=== PATIENT | female | born 2000 | race African-American/Black ===

== ENCOUNTER 2023-10-26 07:22 | Emergency (ER) | payer MEDICAID, OTHER ==
[~2023-10-26] VITALS: Ht 167.6 cm; Wt 110.4 kg
[2023-10-26 07:54] VITALS: BP 116/73; PULSE 87; RESP 16; TEMP 99; O2SAT 100
[2023-10-26] MEDS ORDERED: IBUP1TAB5 PO (08:35)
[2023-10-26] MEDS ORDERED: HYDR-4902 PO (08:35)
[2023-10-26] MEDS ORDERED: CLIN-203 PO (08:35)
== END 2023-10-26 08:50 | disposition home or self-care (01) ==
LOC: ER 07:22
DX: K08.89 Other specified disorders of teeth and supporting structures (principal); J45.909 Unspecified asthma, uncomplicated; F17.210 Nicotine dependence, cigarettes, uncomplicated; F15.90 Other stimulant use, unspecified, uncomplicated; Z87.442 Personal history of urinary calculi; Z79.899 Other long term (current) drug therapy

== ENCOUNTER 2024-05-16 01:30 | Emergency (ER) | payer MEDICAID ==
[~2024-05-16] VITALS: Ht 167.6 cm; Wt 113.0 kg
[~2024-05-16 01:30] MED LIST: CLIN-203 PO; HYDR-4902 PO; IBUP1TAB5 PO
[2024-05-16 02:33] VITALS: BP 106/71; PULSE 85; RESP 20; TEMP 98.3; O2SAT 98
[2024-05-16 02:33] LABS: Urine Bacteria FEW /hpf (None Seen); Urine Blood 1+ /uL (Negative); Urine Clarity Turbid (Clear); Urine Color Light-Orange (Yellow); Urine Mucus FEW (None Seen); Urine Protein, UAD 1+ (Negative); Urine Specific Gravity 1.029 (1.001-1.035); Urine Urobilinogen Normal (Negative); Urine WBC 14 /hpf (0 - 5)
[2024-05-16 02:59] LABS: COVID19 ANTIGEN SOFIA FIA NEGATIVE (NEGATIVE)
[2024-05-16 03:01] LABS: Rapid Influenza A Negative (Negative); Rapid Influenza B Negative (Negative)
[2024-05-16] MEDS ORDERED: CEPH500C PO (03:17)
--- NOTE | 2024-05-16 03:18 | ED.PDOC ---
GI ASSESSMENT HPI Comments THIS IS A 23-YEAR-OLD FEMALE PRESENTS TO ED FLU-LIKE SYMPTOMS X2 DAYS. PATIENT ALSO PRESENTS WITH HER DAUGHTER WHO WAS ALSO SICK AT HOME WITH THE SAME SYMPTOMS. PATIENT DENIES VAGINAL BLEEDING, SPOTTING, ABDOMINAL PAIN OR CRAMPING. SHE NOTES COUGH, RUNNY NOSE, AND SUBJECTIVE FEVERS. Chief Complaint: Flu like Time Seen by MD: 01:48 Primary Care Provider: NONE Reviewed Notes: Nurses Notes, Medications, Allergies Allergies: Coded Allergies: NO KNOWN ALLERGIES (Unverified , 10/26/23) Home Meds Active Scripts Cephalexin Monohydrate (Cephalexin) 500 Mg Cap, 1 CAP PO BID for 5 Days, #10 CAP Prov:PAULA ROBLES CUTTER APPRENTICE HAND 05/16/24 Hydrocodone-Acetaminophen (Hydrocodone Bitartrate/AC 5-325 mg) 1 Tab Tab, 1 TAB PO BIDP PRN for 4 Days, #8 TAB 0 Refills Prov:GUIDO BE FIXED INTEREST DEALER 10/26/23 Ibuprofen Micronized (Ibuprofen) 600 Mg Tab, 600 MG PO TIDWM for 10 Days, #30 TAB 0 Refills Prov:GUIDO BE FIXED INTEREST DEALER 10/26/23 Clindamycin HCl (Clindamycin Hydrochloride) 300 Mg Cap, 300 MG PO TID for 5 Days, #15 CAP 0 Refills Prov:GUIDO BE FIXED INTEREST DEALER 10/26/23 Mode of Arrival: Ambulatory Past Medical History PAST MEDICAL HISTORY: Denies Surgical History: Denies all surgeries [employer] SUPERVISOR History: No Pertinent [employer]PERVISOR History Family History Family History: Reviewed,noncontributory to illness Social History Smoker: Non-Smoker Alcohol: Denies ETOH Use Drugs: Denies Drug Use Constitutional: reports: fever; denies: chills, diaphoresis, fatigue, malaise, sweats, weakness, others EENTM: reports: nasal discharge; denies: blurred vision, double vision, ear bleeding, ear discharge, ear drainage, ear pain, ear ringing, eye pain, eye redness, hearing loss, mouth pain, mouth swelling, nose bleeding, nose congestion, nose pain, photophobia, tearing, throat pain, throat swelling, voice changes, others Respiratory: reports: cough; denies: hemoptysis, orthopnea, SOB at rest, shortness of breath, SOB with excertion, stridor, wheezing, others Cardiovascular: denies: chest pain, dizzy spells, diaphoresis, Dyspnea on exertion, edema, irregular heart beat, left arm pain, lightheadedness, palpi tations, PND, syncope, others Gastrointestinal: denies: abdomen distended, abdominal pain, blood streaked bowels, constipated, diarrhea, dysphagia, difficulty swallowing, hematemesis, melena, nausea, poor appetite, poor fluid intake, rectal bleeding, rectal pain, vomiting, others Genitourinary: denies: abnormal vagina bleeding, burning, dyspareunia, dysuria, flank pain, frequency, hematuria, incontinence, pain, , vagina discharge, urgency, others Neurological: denies: dizziness, fainting, headache, left sided numbness, left sided weakness, numbness, paresthesia, pre-existing deficit, right sided numbness, right sided weakness, seizure, speech problems, tingling, tremors, weakness, others Musculoskeletal: denies: back pain, gout, joint pain, joint swelling, muscle pain, muscle stiffness, neck pain, others Integumetry: denies: bruises, change in color, change in hair/nails, dryness, laceration, lesions, lumps, rash, wounds, others Allergic/Immunocompromised: denies: Difficulty Healing, Frequent Infections, Hives, Itching, others Hematologic/Lymphatic: denies: anemia, blood clots, easy bleeding, easy bru ising, swollen glands, others Endocrine: denies: excessive hunger, excessive sweating, excessive thirst, e xcessive urination, flushing, intolerance to cold, intolerance to heat, unexplained weight gain, unexplained weight loss, others Psychiatric: denies: anxiety, bipolar disorder, depression, hopeless, panic disorder, schizophrenia, sleepless, suicidal, others Physical Exam General Appearance: No Apparent Distress, Normal HEENT: Normal ENT Inspection, Pharynx Normal, TMs Normal Neck: Full Range of Motion, Non-Tender, Normal, Normal Inspection Respiratory: Chest Non-Tender, Lungs Clear, No Accessory Muscle Use, No Re spiratory Distress, Normal Breath Sounds Cardiovascular: No Edema, No JVD, No Murmur, No Gallop, Normal Peripheral Pulses, Regular Rate/Rhythm Breast Exam: Deferred Gastrointestinal: No Organomegaly, Non Tender, No Pulsatile Mass, Normal Bowel Sounds, Soft Genitalia: Deferred Pelvic: Deferred Rectal: Deferred Extremities: Normal capillary refill, Normal inspection, Normal range of motion, Non-tender, No pedal edema Musculoskeletal : Apperance: Normal Neurologic: Alert, cementer II-XII nml as Tested, No Motor Deficits, Normal Affect, Normal Mood, No Sensory Deficits Cerebellar Function: Normal Reflexes: Normal Skin: Dry, Normal Color, Warm Lymphatic: No Adenopathy Was a procedure done? Was a procedure done?: No GI differential Dx Differential Diagnosis: UTI X-Ray, Labs, Meds, VS Vital Signs Date Time Temp Pulse Resp B/P (MAP) Pulse Ox O2 Delivery O2 Flow Rate FiO2 05/16/24 02:33 85 20 98 Room Air 05/16/24 02:33 98.3 85 20 106/71 (83) 98 98.3 05/16/24 01:56 98.3 85 20 106/71 (83) 98 Lab Test 05/16/24 02:25 05/16/24 02:18 Range/Units Influenza Type A Antigen Negative Negative Influenza Type B Antigen Negative Negative SARS-CoV-2 Antigen (Rapid) Negative NEGATIVE Urine Color Light-orange Yellow Urine Clarity Turbid H Clear Urine pH 6.0 5.0-9.0 Urine Specific [place] 1.029 1.001-1.035 Urine Protein 1+ H Negative Urine Ketones 4+ H Negative Urine Blood 1+ H Negative /uL Urine Nitrite Negative Negative Urine Bilirubin Negative Negative Urine Urobilinogen Normal Negative mg/dL Urine Leukocyte Esterase 3+ Negative /uL Urine RBC 31 0 - 4 /hpf Urine WBC 14 0 - 5 /hpf Urine Squamous Epithelial Cells Many <5 /hpf Urine Bacteria Few H None Seen /hpf Urine Mucus Few None Seen Urine Glucose Normal Normal mg/dL X-Ray, Labs, Meds, VS Comment INFLUENZA A AND B AND COVID-19 SWABS NEGATIVE. UA SHOWS BACTERIA, PATIENT WE WILL TREAT WITH KEFLEX TWICE DAILY X5 DAYS. ADVISED PATIENT TO FOLLOW UP WITH HER PCP IN 2-3 DAYS. ADVISED TO REST, INCREASE P.O. FLUIDS WITH ELECTROLYTES. ADVISED TO RETURN TO THE ER FOR ANY ABDOMINAL CRAMPING VAGINAL BLEEDING VAGINAL SPOTTING HIGH FEVERS, CONTINUOUS NAUSEA VOMITIG OR ANY CONCERNING SYMPTOMS. PATIENT AGREES WITH DISCHARGE PLAN OF CARE. Time of 1ST Reevaluation: 03:15 Reevaluation 1ST: Unchanged Patient Education/Counseling: Diagnosis, Treatment, Prognosis, Need For Follow Up Family Education/Counseling: Diagnosis, Treatment, Prognosis, Need For Follow Up Departure 1 Departure Time of Disposition: 03:15 Impression: Primary Impression: Urinary tract infection Qualified Codes: N30.01 - Acute cystitis with hematuria Disposition: HOME / SELF CARE / HOMELESS Condition: Stable e-Prescriptions Cephalexin Monohydrate (Cephalexin) 500 Mg Cap 1 CAP PO BID for 5 Days, #10 CAP Prov: PAULA ROBLES 05/16/24 Discharged With: Spouse Critical Care Note Critical Care Time?: No Stability Stability form required: PAULA Mitchell May 16, 2024 03:18
== END 2024-05-16 03:23 | disposition home or self-care (01) ==
LOC: ER 01:30
DX: O23.42 Unspecified infection of urinary tract in pregnancy, second trimester (principal); N39.0 Urinary tract infection, site not specified; Z3A.20 20 weeks gestation of pregnancy; Z20.822 Contact with and (suspected) exposure to COVID-19
CPT/HCPCS: 36415; 81001; 87426; 87804